=== PATIENT | male | born 1950 | race Caucasian/White ===

== ENCOUNTER 2024-02-17 11:12 | Day surgery (SDC) | payer OTHER, BC ==
[2024-02-10 14:50] LABS: Absolute Eosinophils 0.1 K/uL (0-0.5); Absolute Lymphocytes (CBC) 2.3 K/uL (0.7-4.9); Absolute Monocytes 0.4 K/uL (0.1-1.3); Absolute Neutrophil 4.3 K/uL (1.8-8.0); Basophils % 0.6 % (0-1.3); Eosinophils % 1.6 % (0-4.4); Hematocrit 41.1 % (39.6-49.0); Hemoglobin 13.7 g/dL (13.6-17.9); Lymphocytes % 32.6 % (15.3-44.8); MCH 29.8 pg (27.0-35.0); MCHC 33.3 g/dL (32.0-36.0); MCV 89.3 fL (80-100); MPV 8.3 fL (7.6-11.3); Neutrophils % 59.2 % (41.7-73.7); Platelets 168 thou/uL (152-406); Red Cell Distribution Width 12.9 % (12.1-15.2)
[2024-02-10 15:06] LABS: Anion Gap 6.6 mEq/L (5.0-15.0); Bilirubin Total 0.5 mg/dL (0.2-1.0); Potassium 3.6 mEq/L (3.5-5.1)
[2024-02-10 15:07] LABS: Albumin 3.4 g/dL (3.4-5.0); Bilirubin Direct 0.2 mg/dL (0-0.2); Bilirubin Indirect, Calculated 0.3 mg/dL (0.2-0.8); Globulin 3.4 g/dL (2.3-3.5); Protein, Total 6.8 g/dL (6.4-8.2)
--- NOTE | 2024-02-10 17:05 | RAD REPORT ---
EXAMINATION: TWO VIEW CHEST XR CLINICAL INDICATION: Male, 74 years old. [facility] pre op pending cholecystectomy. Hypertension TECHNIQUE: 2 view radiographs of the chest were performed. COMPARISON: 01/06/2012 FINDINGS: Bibasilar reticular opacities, predominantly peripheral. Overall hyperlucency, may suggest COPD. No p neumothorax or sizable effusion. The heart is normal in size. Mediastinal contours are unremarkable. IMPRESSION: Bibasilar reticular opacities, could relate to emphysematous changes or sequelae of interstitial lung disease. No evidence of focal airspace opacification.
--- NOTE | 2024-02-13 11:18 | EKG ---
Test Date: 2024-02-10 Test Time: 15:38:53 Test Developer: DUTCH MEASUREMENT RESULTS: Intervals: Rate: 63 OH: 172 QRSD: 122 QT: 398 QTc: 407 David: P: 64 OH: 172 QRS: -38 T: 11 INTERPRETIVE STATEMENTS: Normal sinus rhythm Left axis deviation Left ventricular hypertrophy with QRS widening Abnormal ECG Compared to ECG 08/15/2010 08:10:41 Left-axis deviation now present Electronically Signed On 02-13-24 11:13:59 VETERINARY TOXICOLOGIST by Mynor Florentino
[2024-02-17] MEDS: Ringers Lactate 1,000 ML IV ONE (11:40)
[2024-02-17] MEDS ORDERED: ROCURONIUM 50 MG/5 ML VIAL IV ONE (11:45)
[2024-02-17] MEDS ORDERED: ONDANSETRON 4 MG/2 ML VIAL ONE (11:45)
[2024-02-17] MEDS ORDERED: LIDOCAINE 1% MPF 5 ML VIAL ONE (11:45)
[2024-02-17] MEDS ORDERED: FENTANYL CITR 100 MCG/2 ML ONE (11:45)
[2024-02-17] MEDS ORDERED: propofoL 200 MG/20 ML VIAL IV ONE (11:45)
[2024-02-17] MEDS ORDERED: MIDAZOLAM HCL 2 MG/2 ML INJ ONE (11:45)
[2024-02-17] MEDS ORDERED: KETOROLAC 30 MG/ML INJ ONE (11:45)
[2024-02-17] MEDS: CEFOXITIN SODIUM 1 GM/VIAL ONE (13:10)
[2024-02-17] MEDS ORDERED: GLYCOPYRROLATE 0.2 MG/ML SYR ONE ×2 (13:20→13:33)
[2024-02-17] MEDS ORDERED: NEOSTIGMINE 1 MG/ML -10 ML VIAL ONE (13:33)
[2024-02-17] MEDS ORDERED: Mastisol Adhesive Liq ONE (13:40)
--- NOTE | 2024-02-17 13:46 | P.BOP ---
Preoperative diagnosis: acute cholecystitis, symptomatic cholelithiasis Postoperative diagnosis: same Primary procedure: Laparoscopic cholecystectomy Estimated blood loss: <10cc Specimen: gb Findings: as above Anesthesia: General Complications: None Transferred to: Recovery Room Condition: Good
[2024-02-17 14:57] VITALS: BP 147/67; TEMP 97.8; O2SAT 99
--- NOTE | 2024-02-17 21:16 | OP ---
Date of Procedure: 02/17/2024 Surgeon: Dontae Candelario MD Diagnoses: Acute cholecystitis, symptomatic cholelithiasis, right upper quadrant abdominal pain. Postoperative Diagnoses: Acute cholecystitis, symptomatic cholelithiasis, right upper quadrant abdom inal pain. Procedure: Laparoscopic cholecystectomy. Estimated Blood Loss: Less than 10 cc. Specimen: Gallbladder. Anesthesia: General plus local. Complications: None. Findings: Acute cholecystitis, symptomatic cholelithiasis with multiple omental adhesions to the gal lbladder. Indications: This is the case of a female who comes to us with acute abdominal pain, diagnosis above . Fully explained the benefits, alternatives, and risks of laparoscopic possible open cholecystectom y which include, but not limited to infection, bleeding, damage to adjacent structures, anesthesia co mplication, choledocholithiasis, bile leak, pancreatitis, MS, and . She also understands this m ay not relieve the symptoms. She might need more than one surgical intervention. She understood, si gned a consent. Description Of Procedure: The patient was brought to the operating room, placed in supine position, anesthesia was without complication. Abdominal area was prepped and draped in the sterile fashion. Marcaine 0.5% was injected for local anesthetic, followed by sharp incision of the skin in the infrau mbilical region. Incision was carried down to fascia, which was opened under direct vision. Periton eum was encountered and opened under direct vision. Vicryl #1 was placed inside the fascia. Melvi trocars were carefully introduced. Pneumoperitoneum was obtained. I placed 3 more trocars, 5 mm eac h one of them, 1 in the epigastric area, 2 in the right upper quadrant using same technique, which wa s consisted of local anesthetic, sharp incision of the skin, introduction of the trocars under direct vision. This allowed me the visualization of the area of the gallbladder. There were multiple omen zeenat adhesions attached to the gallbladder. Those have to be removed first with the help of a LigaSur e to continue the surgery. Once those adhesions were removed, we make sure we have good hemostasis. Then, we placed a grasper in the fundus of the gallbladder another grasper in the infundibulum, retr acted the gallbladder in the inferolateral fashion exposing the triangle of Calot, obtaining critical view. The cystic duct and cystic artery were clearly isolated, freed circumferentially, and a conne ction between those and the gallbladder were clearly identified. I proceeded to ligate those by marvin mendez at least 3 clips proximally and 1 clip distally, ligation in middle. Same was done with the cystic artery. No bile leak. No bleeding. The gallbladder was removed from liver using Bovie cauterizer and removed from abdominal cavity using EndoCatch through the umbilical incision. The area was inspe cted once again. No bile leak. No bleeding. The area of the omental adhesions was also inspected w ith no bleeding. At that moment, I proceeded to remove the trocars under direct vision. Deflated th e pneumoperitoneum. Closed the fascia with #1 Vicryl. Irrigated subcutaneous tissue, closed with 3- 0 chromic, and skin in a subcuticular fashion with 3-0 chromic and Steri-Strips on top. Sponge count and instrument counts were correct. The patient tolerated the procedure well. The patient was sent to Recovery in stable condition. COLBY/YASIR Voice ID: [id number] Report ID: [id number]
--- NOTE | 2024-02-17 21:22 | DS ---
Date of Discharge: 02/17/2024 Diagnoses: Acute cholecystitis, symptomatic cholelithiasis. Procedure: Laparoscopic cholecystectomy. Disposition: Home. Condition: Stable. Activity: As tolerated. No heavy lifting. Discharge Instructions: Follow up in my office in 1 week. Call for appointment at [phone]. Keep a chace dry for 48 hours, then may shower. Keep Steri-Strips intact. COLBY/YASIR Voice ID: [id number] Report ID: [id number]
== END 2024-02-17 15:25 | disposition home or self-care (01) ==
LOC: OR 11:12
PROVIDERS: ATTEND Surgery
PROC: 0FT44ZZ Resection of Gallbladder, Percutaneous Endoscopic Approach (ICD-10-PCS; principal; 2024-02-17 12:30)
DX: K80.12 Calculus of gallbladder with acute and chronic cholecystitis without obstruction (principal); R10.11 Right upper quadrant pain
CPT/HCPCS: 93005; 85025; 80048; 36415; 80076; 88304; 83690; 71046; 47562; J2704; J2710; J2003; J2250; J3010; J0694; J2405; J7120; A4314